=== PATIENT | female | born 1995 | race African-American/Black ===

== ENCOUNTER 2020-09-20 14:27 | Outpatient (CLI) | payer OTHER | END 2020-09-20 19:05 | disposition home or self-care (01) | LOC: INF 14:27 | PROVIDERS: ATTEND Internal Medicine | DX: Z23 Encounter for immunization (principal) ==

== ENCOUNTER 2020-10-18 09:04 | Outpatient (CLI) | payer OTHER | END 2020-10-18 19:26 | disposition home or self-care (01) | LOC: INF 09:04 | PROVIDERS: ATTEND Internal Medicine | DX: Z23 Encounter for immunization (principal) | CPT/HCPCS: 96372 ==